=== PATIENT | male | born 1965 | race Caucasian/White ===

== ENCOUNTER 2021-05-03 20:01 | Inpatient (IN) | payer OTHER ==
[~2021-05-03] VITALS: Ht 180.3 cm; Wt 117.9 kg
[2021-05-04 00:35] VITALS: BP 126/76
--- NOTE | 2021-05-04 01:02 | NUR ---
PT WAS ADMITTED TO THE UNIT FROM [facility] IN A STABLE CONDITION.PT WITH A NEW ONSET OF SZ,PRECAUTIONS IN PLACE.PT EDUCATED ON THE NEED TO CALL FOR ASSISTANCE WHEN GETTING OUT OF THE BED.ADMISSION HX,EDUCATION AND ASSESSMENT COMPLETED.NO COMPLAINTS OF DIZZINESS AND SZ NOTED SO FAR.FALL PRECAUTIONS IN PLACE,CALL LIGHT WITHIN REACH.
[2021-05-04 05:36] LABS: HEMATOCRIT 42.1 % (42.0-52.0); HEMOGLOBIN 14.6 gm/dL (14.0-18.0); MCHC 34.8 g/dL (28.0-37.0); RBC 4.58 mil/uL (4.50-6.00); RDW 13.3 % (10.5-14.5)
[2021-05-04 06:03] LABS: CREATININE 1.3 mg/dL (0.7-1.3)
[2021-05-04 06:07] LABS: CHOLESTEROL 110 mg/dL (<200); HDL CHOLESTEROL 24 mg/dL (>40); LDL CHOLESTEROL 71 mg/dL (<100); TC:HDL 4.6 Ratio (Not establshd); TRIGLYCERIDE 77 mg/dL (<150); VLDL 15 mg/dL (<40)
[2021-05-04 06:11] LABS: SERUM ASSESSMENT Clear
[2021-05-04 06:30] LABS: FOLIC ACID 11.8 ng/mL (8.6-58.9)
[2021-05-04 07:39] VITALS: BP 115/72
[2021-05-04] MEDS ORDERED: LISINOPRIL10 MG PO (09:06)
--- NOTE | 2021-05-04 14:31 | NUR ---
MET WITH PATIENT, AT BEDSIDE. PATIENT ADMITS WITH SEIZURE. 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 PATIENT WORKS [employer]. EMPLOYMENT AWARE OF ADMISSION. PATIENT DRIVES, USES NO ASSISTIVE DME. PATIENT HAS SUPPORTIVE FAMILY TO ASSIST AT HOME. [employer] FOLLOWING ANTICIPATE NE NEEDS AT DC.
--- NOTE | 2021-05-04 15:12 | NUR ---
ASSUMED CARE OF PATIENT AT SHIFT CHANGE. ASSESSMENT CHARTED. MEDICATION ADMINISTERED PER EMAR. VSS; O2 SAT AT 92% ON RA BUT DENYING SOA. PATIENT AMBULATED SBA TO CART FOR CT W CONTRAST. CONTINUED ON SIEZURE PRECAUTIONS BUT NO SIEZURE ACTIVITY THIS SHIFT. PATIENT CT RESULTS SUGGESTED COVID INFECTION; COVID SWAB DONE WITH POSITIVE RESULT. 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 2 FAMILY MEMBERS IN ROOM INSTRUCTED PATIENT TO QUARANTINE AND GET TESTED. PATIENT WILL BE TRANSFERRED TO [facility]; REPORT GIVEN TO MINOO ARDON.
--- NOTE | 2021-05-04 19:15 | NUR ---
PT WAS COMING FROM 4W TO ROOM 449 DUE POSITIVE COVID TEST TODAY, PT IS A&OX4, PT'S VS ARE STABLE, PT DOES NOT HAVE SOB, PT REFUSED TO DO SECOND COIVD PCR TEST AT DAY SHIFT, RN HAS REPORTED TO NEXT TO TRY AGAIN FOR COVID PCR TEST.
[2021-05-04 19:30] VITALS: BP 126/81
[2021-05-05 05:00] VITALS: BP 119/77
[2021-05-05 05:39] LABS: HEMATOCRIT 41.8 % (42.0-52.0); HEMOGLOBIN 13.9 gm/dL (14.0-18.0); MCH 30.6 pg (26.0-34.0); MCHC 33.1 g/dL (28.0-37.0); MCV 92.5 fL (80.0-100.0); RBC 4.52 mil/uL (4.50-6.00); RDW 13.5 % (10.5-14.5); WBC 3.2 thou/uL (4.0-11.0)
[2021-05-05 05:49] LABS: CALCIUM 7.7 mg/dL (8.5-10.1); CREATININE 1.5 mg/dL (0.7-1.3); POTASSIUM 3.9 mmol/L (3.5-5.1)
--- NOTE | 2021-05-05 07:12 | NUR ---
Pt. moved from 349 to 353 last night. COVID PCR sent and came back positive. Pt. informed. Dr. Delgado came in to see pt. last night. MRI ordred ,questionaires completed and faxed . Denies any pain or shortness of breath. No c/o nausea or vomiting. Seizure precautions maintained , no seizure activity. Pt. on enhanced precaution ,afebrile.
[2021-05-05 07:44] VITALS: BP 115/68
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
[2021-05-05 11:31] VITALS: BP 114/71
[2021-05-05] MEDS ORDERED: ROBITUSSIN100 MG/53 PO (13:02)
--- NOTE | 2021-05-05 14:24 | NUR ---
DISCHARGE NOTE: SW reviewed chart and spoke with nursing and attending physician. Pt was transferred to 3W from 4W yesterday after having positive COVID test. Pt placed in Enhanced Isolation. MRI ordered today. Discharge summary completed. SW spoke with pt via phone to discuss discharge plan. Pt states that he will have transportationi home once he is discharged. MRI has not been done yet. SW followed up with pt's nurse, who states that pt will have his MRI done last, as he is COVID positive. Nursing to update pt. No SW discharge needs identified at this time, but is available to assist should needs arise.
[2021-05-05 16:48] VITALS: BP 115/65
[2021-05-05 17:49] VITALS: BP 115/65
--- NOTE | 2021-05-05 18:56 | NUR ---
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
--- NOTE | 2021-05-07 19:42 | EEG ---
[facility] [place] [address] ELECTROENCEPHALOGRAM Name: PAUL EASLEY Room #: 353-P [facility] IN M.R.#: [id number] Admission: 05/03/21 Attend Phys: Juanpablo Blackburn MD Discharge: 05/05/21 Date of : 69 Report #: [id number] THIS REPORT FOR: //name// This patient is being evaluated for seizure. FINDINGS: EEG was done by placing the electrode by standard 10-20 system of electrode placement. Both referential and sequential montages were used for recording. Background activity in this patient's EEG is about 10 Hz and 30 microvolt. Large portion of this EEG was obtained when the patient was asleep and that is associated with bilaterally symmetrical sleep ____. Photic stimulation is unremarkable. Throughout the record, no active epileptiform activity was noticed. IMPRESSION: This patient's EEG is within normal limit. Thank you very much for this referral. <ELECTRONICALLY SIGNED> By: Gerald Delgado MD 05/07/21 1942 [id number] Gerald Delgado MD /nt
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
== END 2021-05-05 18:55 | disposition home or self-care (01) | DRG 179 ==
LOC: 4W 20:01 → 3W 20:14 → 4W 20:14 → 3W 05-04 16:41
PROVIDERS: Nurse Practitioner Family; ADMIT Hospitalist; ATTEND Hospitalist
DX: U07.1 COVID-19 (principal); R56.9 Unspecified convulsions; D69.6 Thrombocytopenia, unspecified; I10 Essential (primary) hypertension; F17.200 Nicotine dependence, unspecified, uncomplicated; D72.819 Decreased white blood cell count, unspecified; Z90.49 Acquired absence of other specified parts of digestive tract; R55 Syncope and collapse
CPT/HCPCS: 10045; 10879